=== PATIENT | male | born 1980 | race Caucasian/White ===

== ENCOUNTER 2018-07-24 18:44 | Emergency (ER) | payer SELFPAY ==
[~2018-07-24] VITALS: Ht 167.6 cm; Wt 81.6 kg
[2018-07-24 18:45] VITALS: BP_SYST 143
[2018-07-24 19:19] VITALS: BP_SYST 139
== END 2018-07-24 19:19 ==
LOC: SED 18:44
DX: S30.811A Abrasion of abdominal wall, initial encounter (principal); Z90.89 Acquired absence of other organs; V43.52XA Car driver injured in collision with other type car in traffic accident, initial encounter; Y93.89 Activity, other specified; Y92.410 Unspecified street and highway as the place of occurrence of the external cause; Y99.8 Other external cause status
CPT/HCPCS: 99283